=== PATIENT | female | born 1990 | race Hispanic/Latino ===

== ENCOUNTER 2023-02-05 20:34 | Emergency (ER) | payer BC, SELFPAY ==
[2023-02-05] MEDS ORDERED: predniSONE 20 MG TAB ONE (21:00)
[2023-02-05] MEDS ORDERED: AMOXicillin 250 MG CAP ONE (21:00)
== END 2023-02-05 21:12 | disposition home or self-care (01) ==
LOC: NAV ERS 20:34
DX: H70.92 Unspecified mastoiditis, left ear (principal); G58.8 Other specified mononeuropathies
CPT/HCPCS: 99282; J7512

== ENCOUNTER 2023-09-13 02:01 | Emergency (ER) | payer BC ==
[2023-09-13 02:35] LABS: #Basophils 0.1 thou/uL (0.0-0.2); #Eosinphils 0.3 thou/uL (0.0-0.7); #Lymphocytes 3.3 thou/uL (1.20-3.40); #Monocytes 0.5 thou/uL (0.11-0.59); #Neutrophils 3.2 thou/uL (1.40-6.50); %Basophils 1.2 % (0.0-1.0); %Eosinophils 4.6 % (0.0-10.0); %Lymphocytes 44.9 % (21.0-51.0); %Monocytes 6.2 % (0.0-10.0); %Neutrophils 43.2 % (42.0-75.0); Hemoglobin 12.9 g/dL (12.0-16.0); Mean Corpuscular HGB CONC 33.1 g/dL (32.0-36.0); Mean Corpuscular Hemoglobin 29.4 pg (27.0-31.0); Mean Corpuscular Volume 88.8 fl (78.0-98.0); Platelet Count 242 10x3/uL (130-400); RBC Distribution Width 10.5 % (11.5-14.5); Red Blood Cell (RBC) Count 4.39 mill/uL (4.20-5.40); White Blood Cell (WBC) Count 7.3 10x3/uL (4.8-10.8)
[2023-09-13] MEDS ORDERED: Aspirin Chewable 81 MG TAB ONE (02:46)
[2023-09-13] MEDS ORDERED: Acetaminophen 500 MG TAB ONE (02:46)
[2023-09-13 02:51] LABS: ALT (SGPT) 10 U/L (8-55); AST (SGOT) 13 U/L (5-34); Albumin 4.4 g/dL (3.5-5.0); Alkaline Phosphatase 48 U/L (40-110); Anion Gap 13 mmol/L (10-20); BUN (Urea Nitrogen) 13 mg/dL (7.0-18.7); Bilirubin, Total 0.5 mg/dL (0.2-1.2); Calc. Creatinine Clearance 0 mL/min (70-130); Calcium 9.6 mg/dL (7.8-10.44); Carbon Dioxide 22 mmol/L (22-29); Chloride 106 mmol/L (98-107); Estimated GFR 117; Globulin 2.8 g/dL (2.4-3.5); Glucose 96 mg/dL (70-105); Potassium 3.4 mmol/L (3.5-5.1); Protein, Total 7.2 g/dL (6.0-8.3); Sodium 138 mmol/L (136-145); Troponin I Less than 0.010 ng/mL (< 0.028)
== END 2023-09-13 04:15 | disposition home or self-care (01) ==
LOC: NAV ERS 02:01
DX: R07.81 Pleurodynia (principal)
CPT/HCPCS: 71045; 80053; 83690; 84484; 85025; 93005